=== PATIENT | male | born 1990 | race Caucasian/White ===

== ENCOUNTER 2017-03-05 16:25 | Emergency (ER) | payer OTHER ==
[2017-03-05] MEDS ORDERED: NS 0.9% 1000 ML* 1,000 ML BOLUS SCH (18:00)
--- NOTE | 2017-03-05 18:17 | RAD ---
INDICATION: Shortness of breath. COMPARISON: There are no prior studies available for comparison. TECHNIQUE: Dual-energy PA and lateral views of the chest were obtained. FINDINGS: The heart is within normal limits in size. Mediastinal and hilar contours appear within normal limits. The lungs are clear. No pleural effusion is present. IMPRESSION: NO EVIDENCE FOR ACTIVE CARDIOPULMONARY DISEASE.
[2017-03-05 19:01] LABS: Urine Bilirubin Negative (Negative); Urine Glucose Negative (Negative); Urine Nitrite Negative (Negative)
[2017-03-05 19:38] LABS: Hematocrit 48 % (42-52); Hemoglobin 15.9 g/dl (14.0-18.0); Mean Corpuscular HGB Conc 34 g/dl (31-36); Mean Corpuscular Hemoglobin 31 pg (27-31); Mean Corpuscular Volume 92 fL (80-94); Mean Platelet Volume 10 um3 (7.4-10.4); Red Blood Count 5.16 10^6/ul (4.0-5.4); Red Cell Distribution Width 13 % (10.5-15); White Blood Count 10.4 10^3/ul (3.5-10.8)
[2017-03-05 19:45] LABS: ALT 21 U/L (7-52); AST 19 U/L (13-39); Albumin 4.3 g/dL (3.2-5.2); Alkaline Phosphatase 52 U/L (34-104); Amylase 48 U/L (29-103); Anion Gap 5 mmol/L (2-11); BUN/Creatinine Ratio 17.6 (8-20); Blood Urea Nitrogen 15 mg/dL (6-24); C Reactive Protein < 1.00 mg/L (< 5.00); CO2 Carbon Dioxide 26 mmol/L (22-32); Calcium 9.1 mg/dL (8.6-10.3); Chloride 107 mmol/L (101-111); Creatine Kinase 93 U/L (10-223); EGFR African American 140.1 (>60); Globulin 2.4 g/dL (2-4); Glucose 86 mg/dL (70-100); Lipase 18 U/L (11.0-82.0); Magnesium 1.9 mg/dL (1.9-2.7); Sodium 138 mmol/L (133-145); Total Protein 6.7 g/dL (6.4-8.9)
[2017-03-05 19:53] VITALS: BP 155/90
[2017-03-05] MEDS ORDERED: Iohexol 300* (CONTRAST) 10 ML SDV IV ONE (20:18)
--- NOTE | 2017-03-05 20:48 | RAD ---
INDICATION: Bilateral lower quadrant abdominal pain. COMPARISON: There are no prior studies available for comparison. TECHNIQUE: A CT scan of the abdomen and pelvis was performed with intravenous and oral contrast following intravenous injection of 88 ml of Omnipaque 300 nonionic contrast. Contiguous axial sections were obtained from the lung bases through the symphysis pubis. Images were reconstructed in the coronal and sagittal planes. FINDINGS: The lung bases are clear. No pleural effusion is present. The liver and spleen are within normal limits in size without significant focal abnormality. No calcified gallstones are seen. The pancreas appears to be within normal limits in size. The kidneys and adrenal glands are normal in size. No hydronephrosis is seen. No significant focal renal abnormality is seen. The aorta is normal in caliber and demonstrates homogeneous contrast opacification. No significant enlarged retroperitoneal lymph nodes are seen. There are mildly prominent mesenteric lymph nodes in the right lower quadrant measuring up to 1.5 cm in transverse dimension. The stomach, small and large bowel appear nondistended. The appendix is within normal limits. There is no evidence for diverticulitis or colitis. There is a moderate amount retained stool present. No free intraperitoneal air or fluid is seen. No significant focal osseous abnormality is seen. IMPRESSION: THERE ARE MILDLY PROMINENT LYMPH NODES IN THE RIGHT LOWER QUADRANT SUGGESTING THE POSSIBILITY OF MESENTERIC LYMPHADENITIS.
--- NOTE | 2017-03-06 03:41 | ED ---
Dinesh Durand Thomas, scribed for Mell Richardson MD on 03/05/17 at 1713 . Abdominal Pain/Male - HPI Summary HPI Summary: The pt is a 26 y/o M presenting to the ED c/o abd pain that began between 3 and 7 days ago. The pain is located in bilateral lower quadrants. The pt rates the pain 5/10 in the ED. The pain is described as constant and is described as an ache. His pain sometimes radiates to his back. The pain is not aggravated by palpation. 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 Pt denies dysphagia, choking when eating, bloody stool, painful BMs, fever, chills , diaphoresis, CP, testicular pain, dysuria, and hematuria. He presents to the ED because of his new-onset SOB. He reports that right after I swallow soda, I become short of breath. His cough is similar to his normal smoking-attributed cough. His last BM was today and it was soft, brown, and formed. He does not take any daily medications. PMHx: asthma (as a child), hyperglycemia. PSHx: none. SHx: smoker (1/2 to 1 PPD), no alcohol, no drugs. FHx: appendicitis, DM, CA. The pt reports that he has attempted to quit smoking before to no apparent success. During the examination he was counseled to stop smoking. He reports that he stopped smoking for two years when he was incarcerated for burglary. He used to smoke 2 PPD but he has reduced to 1/2 to 1 PPD. 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 During examination, he consented to a testicular exam. He has never had an STD. He does not want any pain medication at time of examination. - History of Current Complaint Chief Complaint: EDAbdPain Stated Complaint: ABD PAIN/ SOB Time Seen by Provider: 03/05/17 17:04 Hx Obtained From: Patient Onset/Duration: Gradual Onset, Lasting Days - 3-7 days, Still Present Timing: Constant Severity Initially: Moderate Severity Currently: Moderate Pain Intensity: 5 Pain Scale Used: 0-10 Numeric Location: Other - POS: bilateral lower quadrants Radiates: Yes Radiates to: Back Character: Other: - POS: ache Aggravating Factor(s): Nothing, Other: - NOT aggravated by palpation Alleviating Factor(s): Nothing Associated Signs And Symptoms: Positive: Cough - dry, Dizzy - none in the ED, 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 Negative : Diaphoresis, Fever, Chest Pain, Blood in Stool - Risk Factors Testicular Torsion: Negative Cardiac Risk Factors: Smoking - Allergies/Home Medications Allergies/Adverse Reactions: Allergies Allergy/AdvReac Type Severity Reaction Status Date / Time Penicillins Allergy Unknown Verified 03/05/17 16:33 Reaction Details PMH/Surg Hx/FS Hx/Imm Hx Previously Healthy: No Endocrine/Hematology History: Reports: Other Endocrine/Hematological Disorders - Hx hyperglycemia Respiratory History: Reports: Hx Asthma - as a child Infectious Disease History: No Infectious Disease History: Denies: Traveled Outside the [place] in Last 30 Days - Family History Known Family History: Positive: Diabetes, Other - POS: CA, appendicitis - Social History Occupation: Employed Full-time - as a concrete crusher loader operator Alcohol Use: None Alcohol Amount: quit 6 months ago Substance Use Type: Reports: None Hx Tobacco Use: Yes Smoking Status (MU): Light Every Day Tobacco Smoker Review of Systems Constitutional: Negative Negative: Fever, Chills, Skin Diaphoresis Eyes: Negative ENT: Negative, Other - NEG: dysphagia, choking when eating Cardiovascular: Negative Negative: Chest Pain Positive: Shortness Of Breath - s/p drinking soda, Cough - dry Positive: Abdominal Pain - onset 3-7 days, constant, Diarrhea - 3 days ago, undigested food, Other - POS: constipation (no blood, no pain); NEG: bloody stool, painful BMs Genitourinary: Negative Positive: other - NEG: testicular pain. Negative: dysuria, hematuria Musculoskeletal: Negative Skin: Negative Neurological: Other - POS: dizziness (none in the ED, only when operating a forklift) Psychological: Normal All Other Systems Reviewed And Are Negative: Yes Physical Exam Triage Information Reviewed: Yes Vital Signs On Initial Exam: Initial Vitals Pulse Resp BP Pulse Ox 73 17 162/80 98 03/05/17 16:30 03/05/17 16:30 03/05/17 16:30 03/05/17 16:30 afeb in ED Vital Signs Reviewed: Yes Appearance: Positive: Well-Appearing, Well-Nourished, Pain Distress Skin: Positive: Warm, Skin Color Reflects Adequate Perfusion Head/Face: Positive: Normal Head/Face Inspection Eyes: Positive: Conjunctiva Clear ENT: Positive: Normal ENT inspection Neck: Positive: Supple Respiratory/Lung Sounds: Positive: Clear to Auscultation, Breath Sounds Present , Other - No respiratory distress Cardiovascular: Positive: RRR, Pulses are Symmetrical in both Upper and Lower Extremities, Other - Brisk cap refill. Negative: Rub Abdomen Description: Positive: Nontender, No Organomegaly, Soft. Negative: CVA Tenderness (R), CVA Tenderness (L), Distended, Guarding, Hernia @, Hepatomegaly , McBurney's Point Tenderness, Peritoneal Signs, Pulsatile Mass, Splenomegaly Bowel Sounds: Positive: Present Male Genital Exam: Positive: normal genitalia, no hernia, other - Testicles descended. Penis is normal and circumsized. No masses. No hernias.. Negative: epididymal tenderness, erythema, hernia mass, inguinal tenderness, scrotum tenderness (R), scrotum tenderness (L), testicular tenderness (R), testicular tenderness (L), urethral discharge Musculoskeletal: Positive: Strength/ROM Intact Neurological: Positive: Sensory/Motor Intact, Alert, Oriented to Person Place, Time, Speech Normal Psychiatric: Positive: Normal - H[place]ha Coma Scale Coma Scale Total: 15 Diagnostics - Vital Signs Vital Signs Temp Pulse Resp BP Pulse Ox 03/05/17 16:39 98.7 F 73 18 147/84 97 03/05/17 16:30 73 17 162/80 98 - Laboratory Lab Results: Lab Results 03/05/17 03/05/17 03/05/17 Range/Units 18:35 19:20 19:20 WBC 10.4 (3.5-10.8) 10^3/ul RBC 5.16 (4.0-5.4) 10^6/ul Hgb 15.9 (14.0-18.0) g/dl Hct 48 (42-52) % MCV 92 (80-94) fL MCH 31 (27-31) pg MCHC 34 (31-36) g/dl RDW 13 (10.5-15) % Plt Count 118 L (150-450) 10^3/ul MPV 10 (7.4-10.4) um3 Neut % (Auto) 64.1 (38-83) % Lymph % (Auto) 22.2 L (25-47) % [place] % (Auto) 6.2 (1-9) % Eos % (Auto) 5.1 (0-6) % Baso % (Auto) 2.4 H (0-2) % Absolute Neuts (auto) 6.7 (1.5-7.7) 10^3/ul Absolute Lymphs (auto) 2.3 (1.0-4.8) 10^3/ul Absolute Monos (auto) 0.6 (0-0.8) 10^3/ul Absolute Eos (auto) 0.5 (0-0.6) 10^3/ul Absolute Basos (auto) 0.2 (0-0.2) 10^3/ul Absolute Nucleated RBC 0.01 10^3/ul Nucleated RBC % 0.1 D-Dimer, Quantitative (Less Than 230) ng/mL Sodium 138 (133-145) mmol/L Potassium 4.0 (3.5-5.0) mmol/L Chloride 107 (101-111) mmol/L Carbon Dioxide 26 (22-32) mmol/L Anion Gap 5 (2-11) mmol/L BUN 15 (6-24) mg/dL Creatinine 0.85 (0.67-1.17) mg/dL Est GFR ( Amer) 140.1 (>60) Est GFR (Non-Af Amer) 109.0 (>60) BUN/Creatinine Ratio 17.6 (8-20) Glucose 86 (70-100) mg/dL Lactic Acid (0.5-2.0) mmol/L Calcium 9.1 (8.6-10.3) mg/dL Magnesium 1.9 (1.9-2.7) mg/dL Total Bilirubin 0.30 (0.2-1.0) mg/dL AST 19 (13-39) U/L ALT 21 (7-52) U/L Alkaline Phosphatase 52 (34-104) U/L Total Creatine Kinase 93 (10-223) U/L Troponin I 0.00 (<0.04) ng/mL C-Reactive Protein < 1.00 (< 5.00) mg/L Total Protein 6.7 (6.4-8.9) g/dL Albumin 4.3 (3.2-5.2) g/dL Globulin 2.4 (2-4) g/dL Albumin/Globulin Ratio 1.8 (1-3) Amylase 48 (29-103) U/L Lipase 18 (11.0-82.0) U/L Urine Color Yellow Urine Appearance Cloudy Urine pH 7.0 (5-9) Ur Specific [place] 1.021 (1.010-1.030) Urine Protein Negative (Negative) Urine Ketones Negative (Negative) Urine Blood Negative (Negative) Urine Nitrate Negative (Negative) Urine Bilirubin Negative (Negative) Urine Urobilinogen Positive H (Negative) Ur Leukocyte Esterase Negative (Negative) Urine Glucose Negative (Negative) 03/05/17 03/05/17 Range/Units 19:20 19:20 WBC (3.5-10.8) 10^3/ul RBC (4.0-5.4) 10^6/ul Hgb (14.0-18.0) g/dl Hct (42-52) % MCV (80-94) fL MCH (27-31) pg MCHC (31-36) g/dl RDW (10.5-15) % Plt Count (150-450) 10^3/ul MPV (7.4-10.4) um3 Neut % (Auto) (38-83) % Lymph % (Auto) (25-47) % [place] % (Auto) (1-9) % Eos % (Auto) (0-6) % Baso % (Auto) (0-2) % Absolute Neuts (auto) (1.5-7.7) 10^3/ul Absolute Lymphs (auto) (1.0-4.8) 10^3/ul Absolute Monos (auto) (0-0.8) 10^3/ul Absolute Eos (auto) (0-0.6) 10^3/ul Absolute Basos (auto) (0-0.2) 10^3/ul Absolute Nucleated RBC 10^3/ul Nucleated RBC % D-Dimer, Quantitative < 200 (Less Than 230) ng/mL Sodium (133-145) mmol/L Potassium (3.5-5.0) mmol/L Chloride (101-111) mmol/L Carbon Dioxide (22-32) mmol/L Anion Gap (2-11) mmol/L BUN (6-24) mg/dL Creatinine (0.67-1.17) mg/dL Est GFR ( Amer) (>60) Est GFR (Non-Af Amer) (>60) BUN/Creatinine Ratio (8-20) Glucose (70-100) mg/dL Lactic Acid 0.6 (0.5-2.0) mmol/L Calcium (8.6-10.3) mg/dL Magnesium (1.9-2.7) mg/dL Total Bilirubin (0.2-1.0) mg/dL AST (13-39) U/L ALT (7-52) U/L Alkaline Phosphatase (34-104) U/L Total Creatine Kinase (10-223) U/L Troponin I (<0.04) ng/mL C-Reactive Protein (< 5.00) mg/L Total Protein (6.4-8.9) g/dL Albumin (3.2-5.2) g/dL Globulin (2-4) g/dL Albumin/Globulin Ratio (1-3) Amylase (29-103) U/L Lipase (11.0-82.0) U/L Urine Color Urine Appearance Urine pH (5-9) Ur Specific [place] (1.010-1.030) Urine Protein (Negative) Urine Ketones (Negative) Urine Blood (Negative) Urine Nitrate (Negative) Urine Bilirubin (Negative) Urine Urobilinogen (Negative) Ur Leukocyte Esterase (Negative) Urine Glucose (Negative) Result Diagrams: 03/05/17 19:20 03/05/17 19:20 Lab Statement: Any lab studies that have been ordered have been reviewed, and results considered in the medical decision making process. - Radiology CXR Xray Interpretation: No Acute Changes - no active cardiopulmonary disease Radiology Interpretation Completed By: Radiologist - CT CT Abd/Pel CT Interpretation: Positive (See Comments) - THERE ARE MILDLY PROMINENT LYMPH NODES IN THE RIGHT LOWER QUADRANT SUGGESTING THE POSSIBILITY OF MESENTERIC LYMPHADENITIS CT Interpretation Completed By: Radiologist - EKG 19:23 Cardiac Rate: Bradycardia - 57 BPM EKG Rhythm: Sinus Bradycardia - Sinus Bradycardia at 57 BPM, normal AV, normal IV conduction time, normal QTc, normal axis, J-point elevation, early repolarization patter V2 and V3 EKG Comparison: Other - No prior EKGs performed Re-Evaluation - Re-Evaluation First Eval Re-Evaluation Time: 21:15 - pt without pain, wants to go home; CT and lab results discussed Change: Improved Abdominal Pain Fem Course/Dx - Course Assessment/Plan: The pt is a 26 y/o M presenting to the ED c/o abd pain that began between 3 and 7 days ago. The pain is located in bilateral lower quadrants. The pt rates the pain 5/10 in the ED. The pain is described as constant and is described as an ache. His pain sometimes radiates to his back. The pain is not aggravated by palpation. 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 Pt denies dysphagia, choking when eating, bloody stool , painful BMs, fever, chills, diaphoresis, CP, testicular pain, dysuria, and hematuria. He presents to the ED because of his new-onset SOB. He reports that right after I swallow soda, I become short of breath. His cough is similar to his normal smoking-attributed cough. His last BM was today and it was soft, brown, and formed. He does not take any daily medications. PMHx: asthma (as a child), hyperglycemia. PSHx: none. SHx: smoker (1/2 to 1 PPD), no alcohol, no drugs. FHx: appendicitis, DM, CA. The pt reports that he has attempted to quit smoking before to no apparent success. During the examination he was counseled to stop smoking. He reports that he stopped smoking for two years when he was incarcerated for burglary. He used to smoke 2 PPD but he has reduced to 1/2 to 1 PPD. 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 During examination, he consented to a testicular exam. He has never had an STD. He does not want any pain medication at time of examination. An EKG reveals SR, nl AVIVCT, nl axis, J point elevation, no acute changes,no prior to compare. CT Abd/Pel reveals THERE ARE MILDLY PROMINENT LYMPH NODES IN THE RIGHT LOWER QUADRANT SUGGESTING. THE POSSIBILITY OF MESENTERIC LYMPHADENITIS. CXR shows no evidence for active cardiopulmonary disease. Bloodwork reveals Plt count 118, Lymph% 22.2, Baso % 2.4. UA shows positive urobilinogen. Patient is diagnosed with lymphadenitis. The pt is also diagnosed with tobacco abuse disorder and provided educational materials on how to stop smoking. The pt is also diagnosed with elevated blood pressure reading without a diagnosis of hypertension. Patient will be discharged home with follow-up from primary care. Pt is agreeable with this plan. - Diagnoses Differential Diagnosis/HQI/PQRI: Appendicitis, Bowel Obstruction, Constipation, Diverticulitis, Pancreatitis Provider Diagnoses: Tobacco abuse disorder, Elevated blood-pressure reading without diagnosis of hypertension, Acute mesenteric adenitis Discharge - Discharge Plan Condition: Stable Disposition: HOME Patient Education Materials: How to Stop Smoking (ED), Hypertension (ED), Mesenteric Adenitis (ED) Referrals: [facility] [Outside] - 2 Days The documentation as recorded by the Dinesh philippe Thomas accurately reflects the service I personally performed and the decisions made by , Mell Richardson MD.
== END 2017-03-05 21:24 | disposition home or self-care (01) ==
LOC: ED 16:25
DX: R10.9 Unspecified abdominal pain (principal); N50.819 Testicular pain, unspecified; R06.02 Shortness of breath; I88.0 Nonspecific mesenteric lymphadenitis; R42 Dizziness and giddiness; F17.210 Nicotine dependence, cigarettes, uncomplicated; R03.0 Elevated blood-pressure reading, without diagnosis of hypertension
CPT/HCPCS: 36415; 71020; 74177; 80053; 81003; 82150; 82550; 83605; 83690; 83735; 84484; 85025; 85379; 86140; 93005; 99282; Q9967

== ENCOUNTER 2018-06-22 11:39 | Emergency (ER) | payer SELFPAY ==
[2018-06-22 14:04] VITALS: BP 0/0
--- NOTE | 2018-06-22 17:26 | ED ---
Upper Extremity Pain - HPI Summary HPI Summary: Patient is a 27-year-old male who presents emergency department for right shoulder pain times several months. Patient states in November of this year he drove to [place] and since has had right shoulder pain since. He states that pain radiates across into his left shoulder occasionally. He states the morning his shoulders steps and he has to loosen them up. He denies neck pain, numbness, tingling or weakness in arms. Symptoms are mild in severity. Lifting arms makes symptoms worse. Rest makes symptoms better. No past medical history. 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 - History of Current Complaint Chief Complaint: EDExtremityUpper Stated Complaint: ROTATOR CUFF INJURY Time Seen by Provider: 06/22/18 12:55 Hx Obtained From: Patient - Allergies/Home Medications Allergies/Adverse Reactions: Allergies Allergy/AdvReac Type Severity Reaction Status Date / Time Penicillins Allergy Unknown Verified 06/22/18 12:56 Reaction Details PMH/Surg Hx/FS Hx/Imm Hx Previously Healthy: Yes Endocrine/Hematology History: Reports: Other Endocrine/Hematological Disorders - Hx hyperglycemia Respiratory History: Reports: Hx Asthma - as a child Infectious Disease History: No Infectious Disease History: Denies: Traveled Outside the [place] in Last 30 Days - Family History Known Family History: Positive: Diabetes, Other - POS: CA, appendicitis, Non- Contributory - Social History Occupation: Works From/At Home Lives: With Family Alcohol Use: None Alcohol Amount: quit 6 months ago Substance Use Type: Reports: None Hx Tobacco Use: Yes Smoking Status (MU): Heavy Every Day Tobacco Smoker Review of Systems Musculoskeletal: Negative Positive: Other - Bilateral shoulder pain, R>L Negative: Weakness, Paresthesia, Numbness All Other Systems Reviewed And Are Negative: Yes Physical Exam Triage Information Reviewed: Yes Vital Signs On Initial Exam: Initial Vitals Temp Pulse Resp BP Pulse Ox 98.1 F 75 18 132/105 99 06/22/18 11:43 06/22/18 11:43 06/22/18 11:43 06/22/18 11:43 06/22/18 11:43 Vital Signs Reviewed: Yes Appearance: Positive: Well-Appearing - Pt. sitting on bed in NAD. Skin: Positive: Warm, Dry Head/Face: Positive: Normal Head/Face Inspection Eyes: Positive: Normal, EOMI Neck: Positive: Supple, Nontender Musculoskeletal: Positive: Normal, Strength/ROM Intact, Other - Pain with rotation of bilateral shoulders without pinpoint tenderness. Neurological: Positive: Normal, CN Intact II-III Psychiatric: Positive: Affect/Mood Appropriate Diagnostics - Vital Signs Vital Signs Temp Pulse Resp BP Pulse Ox 06/22/18 14:02 0 F 0 17 0/0 0 06/22/18 11:43 98.1 F 75 18 132/105 99 - Laboratory Lab Statement: Any lab studies that have been ordered have been reviewed, and results considered in the medical decision making process. Course/Dx - Course Course Of Treatment: Patient presenting with ongoing shoulder pain. He has a physical job. Pt. drove his motorcycle to the ER today. Xrays are negative for acute findings, reading per radiology. The proximal and prescribed for pain. Advised patient to follow-up with the [facility] and orthopedics further evaluation. Patient understands and agrees with plan. - Diagnoses Differential Diagnosis/HQI/PQRI: Positive: Arthritis, Fracture (Closed), Strain , Sprain Provider Diagnoses: Shoulder strain Discharge - Sign-Out/Discharge Documenting (check all that apply): Patient Departure - Discharge Plan Condition: Good Disposition: HOME Prescriptions: Naproxen [Naproxen 500 mg tab] 500 mg PO Q12H #20 tablet Patient Education Materials: Shoulder Pain (ED) Referrals: [facility] [Outside] Carmen Mancini MD [Medical Doctor] - Additional Instructions: Schedule a follow up appointment with Dr. Mancini and the [facility] Ice intermittently Naproxen as directed for pain Avoid heavy lifting - Billing Disposition and Condition Condition: GOOD Disposition: Home
== END 2018-06-22 14:02 | disposition home or self-care (01) ==
LOC: ED 11:39
DX: S46.911A Strain of unspecified muscle, fascia and tendon at shoulder and upper arm level, right arm, initial encounter (principal); Z72.0 Tobacco use; X58.XXXA Exposure to other specified factors, initial encounter; Y92.9 Unspecified place or not applicable; Z88.0 Allergy status to penicillin
CPT/HCPCS: 99282

== ENCOUNTER 2018-07-10 20:30 | Emergency (ER) | payer SELFPAY ==
[2018-07-10 20:40] VITALS: BP 168/94
--- OUTSIDE RECORDS SUMMARY | 2018-07-10 21:34 | XMS REPORT | Continuity of Care Document ---
:1990 External Reference #:[id number] Author Name Asia Valadez Care Team Providers Name Role Phone Patient's Choice Primary Care Physician Unavailable Payers Description No Information Available Advance Directives Description No Information Available Problems Description No Information Family History Date Family Member(s) Problem(s) Comments General Diabetes Social History Type Date Description Comments Sex Unknown Lives With Spouse Occupation [employer] ETOH Use Occasionally consumes alcohol Tobacco Use Start: Unknown Patient is a current smoker, smokes every day Smoking Status Reviewed: 06/29/18 Patient is a current smoker, smokes every day Exercise Type/Frequency Exercises regularly Allergies, Adverse Reactions, Alerts Date Description Reaction Status Severity Comments 06/29/2018 Penicillin Active Medications Description No Active Medications Immunizations Description No Information Available Vital Signs Date Vital Result Comment 06/29/2018 2:25pm Height 65 inches 5'5" Weight 152.00 lb Heart Rate 80 /min BP Systolic Sitting 150 mmHg BP Diastolic Sitting 90 mmHg Body Temperature 97.1 F BMI (Body Mass Index) 25.3 kg/m2 Results Description No Information Available Procedures Date Code Description Status 06/29/201834350 Inject/Drain Joint/Bursa Major W/O US Completed 06/29/201874307 Inject/Drain Joint/Bursa Major W/O US Completed Encounters Description No Information Available Plan of Treatment Future Appointment(s):09/28/2018 3:30 pm - Jemal V[facility]quez MD at [facility]06/29/2018 - Jemal Vásquez, [id number] Pain in right shoulderReferral:Jori Cole MD, RheumatologyFollow up:Follow up: 3 months with me Also, referral to Dr. [id number] Pain in left [id number] Localized swelling, mass and lump, left lower limbNew Xrays:Ankle Left 3+VWS, Ordered: 06/29/18M75.51 Bursitis of right [id number] Bursitis of left shoulder
== END 2018-07-10 21:30 | disposition left against medical advice (07) ==
LOC: ED 20:30
DX: R10.9 Unspecified abdominal pain (principal); Z53.21 Procedure and treatment not carried out due to patient leaving prior to being seen by health care provider

== ENCOUNTER 2018-07-23 15:17 | Emergency (ER) | payer SELFPAY ==
[2018-07-23 16:58] VITALS: BP 144/80
--- NOTE | 2018-07-23 18:07 | ED ---
Back Pain - HPI Summary HPI Summary: Patient is a 27-year-old male who presents emergency department for left lateral posterior rib pain since yesterday. Patient states he was at work and attempted to start/crack his back when he felt a pop in his left rib cage. Pain is worse with movement and inspiration and palpation. Patient denies recent illness, fevers, coughing, shortness of breath. He denies numbness, tingling or weakness in extremities. He has no past medical history. Denies recent surgery, leg swelling, history of DVTs, recent long travel. Symptoms are mild in severity. Has not taken any [id number] analgesics for pain. - History of Current Complaint Chief Complaint: EDGeneral Stated Complaint: LEFT FLANK PAIN Time Seen by Provider: 07/23/18 15:47 Hx Obtained From: Patient Pain Intensity: 2 - Allergies/Home Medications Allergies/Adverse Reactions: Allergies Allergy/AdvReac Type Severity Reaction Status Date / Time Penicillins Allergy Unknown Verified 07/23/18 15:28 Reaction Details PMH/Surg Hx/FS Hx/Imm Hx Previously Healthy: Yes Endocrine/Hematology History: Reports: Other Endocrine/Hematological Disorders - Hx hyperglycemia Respiratory History: Reports: Hx Asthma - as a child Infectious Disease History: No Infectious Disease History: Denies: Traveled Outside the [place] in Last 30 Days - Family History Known Family History: Positive: Diabetes, Other - POS: CA, appendicitis, Non- Contributory - Social History Alcohol Use: None Alcohol Amount: quit 6 months ago Substance Use Type: Reports: None Hx Tobacco Use: Yes Smoking Status (MU): Heavy Every Day Tobacco Smoker Review of Systems Constitutional: Negative Cardiovascular: Negative Respiratory: Negative Negative: Shortness Of Breath Positive: Other - back and chest wall pain Neurological: Negative Negative: Weakness, Paresthesia, Numbness All Other Systems Reviewed And Are Negative: Yes Physical Exam Triage Information Reviewed: Yes Vital Signs On Initial Exam: Initial Vitals Temp Pulse Resp BP Pulse Ox 99.8 F 99 16 163/85 96 07/23/18 15:23 07/23/18 15:23 07/23/18 15:23 07/23/18 15:23 07/23/18 15:23 Vital Signs Reviewed: Yes Appearance: Positive: Well-Appearing - Pt. sitting up in bed in NAD. Skin: Positive: Warm, Dry Head/Face: Positive: Normal Head/Face Inspection Eyes: Positive: Normal, EOMI Neck: Positive: Supple, Nontender Respiratory/Lung Sounds: Positive: Clear to Auscultation, Breath Sounds Present Cardiovascular: Positive: Normal, RRR Musculoskeletal: Positive: Normal, Strength/ROM Intact, Other - No midline vertebral tenderness. Pain on palpation to the left lateral posterior rib cage. No CVA tenderness Neurological: Positive: Normal, CN Intact II-III Psychiatric: Positive: Affect/Mood Appropriate Diagnostics - Vital Signs Vital Signs Temp Pulse Resp BP Pulse Ox 07/23/18 16:58 98.0 F 80 16 144/80 98 07/23/18 15:23 99.8 F 99 16 163/85 96 - Laboratory Lab Statement: Any lab studies that have been ordered have been reviewed, and results considered in the medical decision making process. Back Pain Course/Dx - Course Course Of Treatment: Patient presenting with posterior rib pain after cracking his back. He has no midline back tenderness. Has no neurological deficits. He is concerned he may have broke a rib. X-rays of chest and ribs were obtained and are unremarkable for acute findings, reading per radiology. Suspect muscle strain. Advised patient to apply ice intermittently. Anti- inflammatory for pain such as ibuprofen. To follow up with [facility] if pain persists. To return to the ER if symptoms change or worsen. Patient understands and agrees with plan. - Diagnoses Differential Diagnosis/HQI/PQRI: Positive: Fracture, Herniated Disc, Strain, Sprain Provider Diagnoses: Muscle strain Discharge - Sign-Out/Discharge Documenting (check all that apply): Patient Departure - Discharge Plan Condition: Good Disposition: HOME Patient Education Materials: Muscle Strain (ED) Referrals: [facility] [Outside] Additional Instructions: Schedule a follow up appointment with the [facility] Ice intermittently NSAIDS for pain as directed such as ibuprofen Return to ER if symptoms change or worsen - Billing Disposition and Condition Condition: GOOD Disposition: Home
== END 2018-07-23 16:58 | disposition home or self-care (01) ==
LOC: ED 15:17
DX: S29.011A Strain of muscle and tendon of front wall of thorax, initial encounter (principal); Z72.0 Tobacco use; Z88.0 Allergy status to penicillin; X50.9XXA Other and unspecified overexertion or strenuous movements or postures, initial encounter; Y92.9 Unspecified place or not applicable; Y99.0 Civilian activity done for income or pay
CPT/HCPCS: 99281

== ENCOUNTER 2018-09-07 11:45 | Emergency (ER) | payer SELFPAY ==
[2018-09-07 11:50] VITALS: BP 158/94
--- NOTE | 2018-09-07 13:15 | ED ---
Upper Extremity Pain - HPI Summary HPI Summary: Patient is a 27 y/o M presenting to ED with complaints of right shoulder pain since this morning. Patient notes that he has been experiencing shoulder pain for the past year. He states that Dr. Cole gave him two cortisone shots three weeks ago, one in each arm, which he notes has greatly relieved Sx. Pain onset again this morning. He had x-ray of shoulder in July, no injuries since then. Patient believes pain is related to arthritis. Patient reports no relief with ibuprofen, Tylenol. He states that he was supposed to see orthopedic doctor but states that appointment was rescheduled and that he has not seen orthopedic doctor yet. He reports no PSHx, no medications, allergy to penicillin , FMHx of CA in grandfather. On triage, pain is rated 10/10. Home medications and allergies are reviewed. Allergies Allergy/AdvReac Type Severity Reaction Status Date / Time Penicillins Allergy Unknown Verified 09/07/18 11:47 Reaction Details - History of Current Complaint Chief Complaint: EDShoulderClavicleInj Stated Complaint: SEVERE SHOULDER PAIN Hx Obtained From: Patient Mechanism Of Injury: Other - no injury reported Onset/Duration: Started Weeks Ago - shoulder pain for past year, Still Present, Worse Since - this morning Timing: Constant, Lasting Hours - since this morning Severity Initially: Moderate Severity Currently: Severe Pain Location: Shoulder - right Character: Sharp Aggravating Factor(s): Movement Alleviating Factor(s): Nothing Associated Signs & Symptoms: Negative: Fever - on vitals, 99 F - Allergies/Home Medications Allergies/Adverse Reactions: Allergies Allergy/AdvReac Type Severity Reaction Status Date / Time Penicillins Allergy Unknown Verified 09/07/18 11:47 Reaction Details PMH/Surg Hx/FS Hx/Imm Hx Previously Healthy: No Endocrine/Hematology History: Reports: Other Endocrine/Hematological Disorders - Hx hyperglycemia Respiratory History: Reports: Hx Asthma - as a child Sensory History: Denies: Hx Legally Blind, Hx Deafness Opthamlomology History: Denies: Hx Legally Blind EENT History: Denies: Hx Deafness - Surgical History Surgery Procedure, Year, and Place: 09/07/18 - reports no PSHx Infectious Disease History: No Infectious Disease History: Denies: Traveled Outside the [place] in Last 30 Days - Family History Known Family History: Positive: Diabetes, Other - POS: CA, appendicitis - Social History Lives: With Family Alcohol Use: None Substance Use Type: Reports: None Hx Tobacco Use: Yes Smoking Status (MU): Heavy Every Day Tobacco Smoker Review of Systems Negative: Fever - on vitals, temp is 99 F Eyes: Negative ENT: Negative Cardiovascular: Negative Respiratory: Negative Gastrointestinal: Negative Positive: no symptoms reported Positive: Other - POSITIVE - RIGHT SHOULDER PAIN Skin: Negative Neurological: Negative Psychological: Normal All Other Systems Reviewed And Are Negative: Yes Physical Exam - Summary Physical Exam Summary: Appearance: Well-appearing, moderate pain distress, well-nourished Skin: Warm, color reflects adequate perfusion, dry Head: Normal Head/Face inspection, atraumatic Eyes: Conjunctiva clear ENT: Normal inspection Neck: Supple, no nodes, no JVD, no bony tenderness, full ROM Respiratory: Lungs clear, normal breath sounds, no respiratory distress Cardio: RRR, No murmur, pulses normal, brisk capillary refill Abdomen: Soft, nontender Musculoskeletal: Decreased abduction and extension of right shoulder, otherwise normal strength/ROM, no calf tenderness, no edema. Distal pulses, sensation intact. Axillary nerve intact on right. Areas of prior cortisone injections, not apparent. Psychological: Normal Neuro: Alert, muscle tone normal, no focal deficit Triage Information Reviewed: Yes Vital Signs On Initial Exam: Initial Vitals Temp Pulse Resp BP Pulse Ox 99 F 79 16 158/94 98 09/07/18 11:47 09/07/18 11:47 09/07/18 11:47 09/07/18 11:47 09/07/18 11:47 Vital Signs Reviewed: Yes Diagnostics - Vital Signs Vital Signs Temp Pulse Resp BP Pulse Ox 09/07/18 11:47 99 F 79 16 158/94 98 - Laboratory Lab Statement: Any lab studies that have been ordered have been reviewed, and results considered in the medical decision making process. Course/Dx - Course Assessment/Plan: Patient is a 27 y/o M presenting to ED with complaints of right shoulder pain since this morning. Patient notes that he has been experiencing shoulder pain for the past year. He states that Dr. Cole gave him two cortisone shots three weeks ago, one in each arm, which he notes has greatly relieved Sx. Pain onset again this morning. He had x-ray of shoulder in July, no injuries since then. Pt declines additional imaging today. Patient believes pain is related to arthritis. Patient reports no relief with ibuprofen , Tylenol. He states that he was supposed to see orthopedic doctor but states that appointment was rescheduled and that he has not seen orthopedic doctor yet. He reports no PSHx, no medications, allergy to penicillin, FMHx of [place] in grandfather. On physical exam, moderate pain distress, decreased extension and abduction of right shoulder, otherwise normal. 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 Therefore, no pain medications given at this time. Patient will be discharged to home with referrals to Dr. Mancini, orthopedist interventional sale consultant, and [facility] to get established with a PCP. Patient is agreeable with this plan. - Diagnoses Differential Diagnosis/HQI/PQRI: Positive: Arthritis, Bursitis, Fracture (Closed ), Strain, Sprain Provider Diagnoses: Right shoulder strain Discharge - Sign-Out/Discharge Documenting (check all that apply): Patient Departure - discharge - Discharge Plan Condition: Stable Disposition: HOME Prescriptions: HYDROcodone/ACETAMIN 5-325 MG* [Spring 5-325 TAB*] 1 tab PO Q8H PRN #9 tab MDD 3 PRN Reason: Pain Patient Education Materials: Shoulder Sprain (ED) Referrals: [facility] [Outside] - 1 Day Carmen Mancini MD [Medical Doctor] - As Soon As Possible (for decreased ROM right shoulder, hx cortisone injections, pain ) No Primary Care Phys,NOPCP [Primary Care Provider] - Additional Instructions: Return to the ER if any new or worsening symptoms. - Billing Disposition and Condition Condition: STABLE Disposition: Home - Attestation Statements Document Initiated by Annelise: Yes Documenting Scribe: NICK MCCLURE Provider For Whom Annelise is Documenting (Include Credential): ALAN TIDWELL MD Scribe Attestation: NICK Durand scribed for ALAN TIDWELL MD on 09/11/18 at 0134. Scribe Documentation Reviewed: Yes Provider Attestation: The documentation as recorded by the NICK philippe accurately reflects the service I personally performed and the decisions made by me, ALAN TIDWELL MD Status of Scribe Document: Viewed
== END 2018-09-07 13:34 | disposition home or self-care (01) ==
LOC: ED 11:45
DX: S43.401A Unspecified sprain of right shoulder joint, initial encounter (principal); Z88.0 Allergy status to penicillin; Z72.0 Tobacco use; X58.XXXA Exposure to other specified factors, initial encounter; Y92.9 Unspecified place or not applicable
CPT/HCPCS: 99281

== ENCOUNTER 2018-09-11 12:07 | Emergency (ER) | payer SELFPAY ==
[2018-09-11 12:16] VITALS: BP 160/99
== END 2018-09-11 15:21 | disposition left against medical advice (07) ==
LOC: ED 12:07
DX: R69 Illness, unspecified (principal); Z53.21 Procedure and treatment not carried out due to patient leaving prior to being seen by health care provider

== ENCOUNTER 2018-12-15 22:32 | Emergency (ER) | payer SELFPAY ==
--- NOTE | 2018-12-15 23:48 | ED ---
Lower Extremity - HPI Summary HPI Summary: 28-year-old male presents with left leg swelling for the past 6 months. He states swelling has been increasing. Denies any pain. He is currently unemployed. He is not on his feet alot. Denies any family history of clots. He has history of IV drug use. No fevers or chills. No rash. is able to ambulate without difficulty. Denies any family history of blood clots. Is a smoker. Denies any recent travel. No injury or previous fracture to the area. no chest pain or SOB. no pain with walking. - History of Current Complaint Chief Complaint: EDExtremityLower Stated Complaint: LT LEG SWOLLEN PER PT Time Seen by Provider: 12/15/18 23:09 Pain Intensity: 0 - Allergies/Home Medications Allergies/Adverse Reactions: Allergies Allergy/AdvReac Type Severity Reaction Status Date / Time Penicillins Allergy Unknown Verified 12/15/18 22:42 Reaction Details Home Medications: Home Medications NK [No Home Medications Reported] 12/15/18 [History Confirmed 12/15/18] PMH/Surg Hx/FS Hx/Imm Hx Endocrine/Hematology History: Reports: Other Endocrine/Hematological Disorders - Hx hyperglycemia Cardiovascular History: Denies: Hx Pacemaker/ICD Respiratory History: Reports: Hx Asthma - as a child History: Denies: Hx Dialysis Sensory History: Denies: Hx Eye Prosthesis, Hx Legally Blind, Hx Deafness Opthamlomology History: Denies: Hx Eye Prosthesis, Hx Legally Blind Neurological History: Denies: Hx Dementia Psychiatric History: Denies: Hx Autism - Surgical History Surgery Procedure, Year, and Place: 09/07/18 - reports no PSHx Infectious Disease History: No Infectious Disease History: Denies: Traveled Outside the [place] in Last 30 Days - Family History Known Family History: Positive: Diabetes, Other - POS: [place], appendicitis, Non- Contributory Negative: Blood Disorder - Social History Alcohol Use: Occasionally Alcohol Amount: quit 6 months ago Substance Use Type: Reports: None Hx Tobacco Use: Yes Smoking Status (MU): Heavy Every Day Tobacco Smoker Review of Systems Negative: Fever Negative: Chest Pain Negative: Shortness Of Breath Positive: Edema - left ankle All Other Systems Reviewed And Are Negative: Yes Physical Exam Triage Information Reviewed: Yes Vital Signs On Initial Exam: Initial Vitals Temp Pulse Resp BP Pulse Ox 98.4 F 73 16 158/105 98 12/15/18 22:37 12/15/18 22:37 12/15/18 22:37 12/15/18 22:37 12/15/18 22:37 Vital Signs Reviewed: Yes Appearance: Positive: Well-Appearing Skin: Positive: Warm, Dry Head/Face: Positive: Normal Head/Face Inspection Eyes: Positive: Normal, Conjunctiva Clear ENT: Positive: Pharynx normal Respiratory/Lung Sounds: Positive: Clear to Auscultation, Breath Sounds Present Cardiovascular: Positive: Normal, RRR Musculoskeletal: Positive: Strength/ROM Intact - left leg, Edema Left - ankle, Other - nontender ankle, good pulses, able to wiggle toes. Negative: Vesta Sign Left Neurological: Positive: Normal Psychiatric: Positive: Normal Diagnostics - Vital Signs Vital Signs Temp Pulse Resp BP Pulse Ox 12/15/18 22:37 98.4 F 73 16 158/105 98 - Laboratory Lab Statement: Any lab studies that have been ordered have been reviewed, and results considered in the medical decision making process. - Ultrasound No standard instances Ultrasound Interpretation Completed By: Radiologist Summary of Ultrasound Findings: IMPRESSION: No left lower extremity deep vein thrombosis. Re-Evaluation - Re-Evaluation First Eval Re-Evaluation Time: 01:01 Comment: discussed results Lower Extremity Course/Dx - Course Course Of Treatment: 28-year-old male presents with left leg swelling for the past 6 months. He states swelling has been increasing. Denies any pain. He is currently unemployed. He is not on his feet alot. Denies any family history of clots. He has history of IV drug use. No fevers or chills. No rash. is able to ambulate without difficulty. Denies any family history of blood clots. Is a smoker. Denies any recent travel. No injury or previous fracture to the area. On exam edema noted to ankle. Nontender left calf. neurovascular intact. Ultrasound normal. Discussed needs to establish care with primary to follow up. patient has already seen by ortho for this who advised PT. Told to get compression socks. Told to elevate. Patient understands and agrees with plan. - Diagnoses Differential Diagnosis/HQI/PQRI: Positive: DVT, Sprain, Strain Provider Diagnoses: Edema of left ankle Discharge - Sign-Out/Discharge Documenting (check all that apply): Patient Departure Patient Received Moderate/Deep Sedation with Procedure: No - Discharge Plan Condition: Good Disposition: HOME Patient Education Materials: Leg Edema (ED) Referrals: [facility] [Outside] Additional Instructions: Use compression socks Ice Elevate Take Tylenol or ibuprofen for pain every 6 hours establish care with primary within 5 days Return to ED if develop any new or worsening symptoms - Billing Disposition and Condition Condition: GOOD Disposition: Home
[2018-12-16 01:06] VITALS: BP 142/76
== END 2018-12-16 01:05 | disposition home or self-care (01) ==
LOC: ED 22:32
DX: R60.0 Localized edema (principal); Z88.0 Allergy status to penicillin; R73.9 Hyperglycemia, unspecified; J45.909 Unspecified asthma, uncomplicated; Z83.3 Family history of diabetes mellitus; F17.200 Nicotine dependence, unspecified, uncomplicated
CPT/HCPCS: 99282

== ENCOUNTER 2019-03-25 18:36 | Emergency (ER) | payer MEDICAID ==
[2019-03-25 18:47] VITALS: BP 164/94
--- NOTE | 2019-03-25 19:20 | ED ---
Lower Extremity - HPI Summary HPI Summary: Patient complains of possible infection to left side mouth with intermittent dental pain 1 month. Denies purulent discharge, fever, oral swelling. Also complains of constant swelling to left ankle times one year with no initial trauma noted. States recent increase in intermittent discomfort of left ankle. Denies new trauma. Denies cough, sore throat, CP, SOB, N/V/D, developing, change in urine, change in BM. Medical history is none. - History of Current Complaint Chief Complaint: EDDentalPain Stated Complaint: TOOTH INFECTION AND ANKLE IS SWOLLEN PER PT Time Seen by Provider: 03/25/19 19:02 Hx Obtained From: Patient Mechanism Of Injury: Unknown Onset/Duration: Weeks Severity Initially: Moderate Severity Currently: Moderate Pain Intensity: 8 Pain Scale Used: 0-10 Numeric Timing: Intermittent Location: Is Discrete @ Character Of Pain: Throbbing Associated Signs And Symptoms: Positive: Swelling Aggravating Factor(s): Ambulation Alleviating Factor(s): Rest, Elevation Able to Bear Weight: Yes - Allergies/Home Medications Allergies/Adverse Reactions: Allergies Allergy/AdvReac Type Severity Reaction Status Date / Time Penicillins Allergy Unknown Verified 03/25/19 18:47 Reaction Details PMH/Surg Hx/FS Hx/Imm Hx Endocrine/Hematology History: Reports: Other Endocrine/Hematological Disorders - Hx hyperglycemia Cardiovascular History: Denies: Hx Pacemaker/ICD Respiratory History: Reports: Hx Asthma - as a child History: Denies: Hx Dialysis Sensory History: Denies: Hx Eye Prosthesis, Hx Legally Blind, Hx Deafness Opthamlomology History: Denies: Hx Eye Prosthesis, Hx Legally Blind EENT History: Denies: Hx Deafness Neurological History: Denies: Hx Dementia Psychiatric History: Denies: Hx Autism - Surgical History Surgery Procedure, Year, and Place: 09/07/18 - reports no PSHx Infectious Disease History: No Infectious Disease History: Denies: Traveled Outside the [place] in Last 30 Days - Family History Known Family History: Positive: Diabetes, Other - POS: CA, appendicitis, Non- Contributory Negative: Blood Disorder - Social History Alcohol Use: None Alcohol Amount: Sober for 3 months Substance Use Type: Reports: None Hx Tobacco Use: Yes Smoking Status (MU): Heavy Every Day Tobacco Smoker Review of Systems Constitutional: Negative Eyes: Negative Positive: Dental Pain Cardiovascular: Negative Respiratory: Negative Gastrointestinal: Negative Genitourinary: Negative Musculoskeletal: Other Skin: Negative Neurological: Negative Psychological: Normal All Other Systems Reviewed And Are Negative: Yes Physical Exam - Summary Physical Exam Summary: No purulent discharge, apical abscess, swelling noted intraorally. Positive dental caries on left lower and left upper posterior molars. Swelling of left ankle without ecchymosis, erythema, deformity noted. Full range of motion of left ankle. PMS intact distally. No pain with palpation of left ankle or foot. Calf soft nontender. Triage Information Reviewed: Yes Vital Signs On Initial Exam: Initial Vitals Temp Pulse Resp BP Pulse Ox 99.0 F 71 16 164/94 98 03/25/19 18:45 03/25/19 18:45 03/25/19 18:45 03/25/19 18:45 03/25/19 18:45 Vital Signs Reviewed: Yes Appearance: Positive: Well-Appearing Skin: Positive: Warm Head/Face: Positive: Normal Head/Face Inspection Eyes: Positive: Normal ENT: Positive: Normal ENT inspection Dental: Positive: Gross Decay/Caries @. Negative: Dental Fracture @, Bleeding Neck: Positive: Supple Respiratory/Lung Sounds: Positive: Clear to Auscultation Cardiovascular: Positive: Normal Abdomen Description: Positive: Nontender Musculoskeletal: Positive: Normal Neurological: Positive: Normal Psychiatric: Positive: Normal AVPU Assessment: Alert - Harsha Coma Scale Best Eye Response: 4 - Spontaneous Best Motor Response: 6 - Obeys Commands Best Verbal Response: 5 - Oriented Coma Scale Total: 15 Diagnostics - Vital Signs Vital Signs Temp Pulse Resp BP Pulse Ox 03/25/19 18:45 99.0 F 71 16 164/94 98 - Laboratory Lab Statement: Any lab studies that have been ordered have been reviewed, and results considered in the medical decision making process. Lower Extremity Course/Dx - Course Course Of Treatment: Patient complains of possible infection to left side mouth with intermittent dental pain 1 month. Denies purulent discharge, fever, oral swelling. Also complains of constant swelling to left ankle times one year with no initial trauma noted. States recent increase in intermittent discomfort of left ankle. Denies new trauma. Denies cough, sore throat, CP, SOB, N/V/D, developing, change in urine, change in BM. Medical history is none. Vital signs within normal limits. Advised patient follow-up with dentist for dental caries. Rx for Augmentin. Patient states he can take amoxicillin despite of allergy to penicillin. Advised patient follow-up with orthopedics for further evaluation of left ankle. - Diagnoses Provider Diagnoses: Pain, dental, Dental caries, Edema of left ankle Discharge - Sign-Out/Discharge Documenting (check all that apply): Patient Departure Patient Received Moderate/Deep Sedation with Procedure: No - Discharge Plan Condition: Stable Disposition: HOME Prescriptions: Amoxicillin/Clavulanate TAB* [Augmentin TAB 875*] 875 mg PO BID #20 tab Ibuprofen TAB* [Motrin TAB* 600 MG] 600 mg PO Q8H PRN 7 Days #20 tab PRN Reason: Pain - Moderate Patient Education Materials: Toothache (ED), Edema (ED) Referrals: No Primary Care Phys,NOPCP [Primary Care Provider] - Mac Bose MD [Medical Doctor] - Additional Instructions: Follow-up with your dentist as soon as possible for tooth decay of all 4 wisdom teeth. Follow-up with orthopedics Dr Bose for further evaluation of left ankle swelling. - Billing Disposition and Condition Condition: STABLE Disposition: Home
== END 2019-03-25 19:29 | disposition home or self-care (01) ==
LOC: ED 18:36
DX: K08.89 Other specified disorders of teeth and supporting structures (principal); K02.9 Dental caries, unspecified; R60.0 Localized edema; Z88.0 Allergy status to penicillin; F17.200 Nicotine dependence, unspecified, uncomplicated
CPT/HCPCS: 99282

== ENCOUNTER 2019-04-15 16:17 | Emergency (ER) | payer MEDICAID, OTHER ==
[2019-04-15 16:23] VITALS: BP 171/86
--- NOTE | 2019-04-15 18:39 | ED ---
Skin Complaint - HPI Summary HPI Summary: Patient complains of rash to bilateral inner arms, chest and abdomen after exposure to poison cristine 3 days ago. Patient states first exposure. Patient has been trying calamine lotion, Benadryl ointment with no relief. Denies any other pain, injury or symptoms. - History of Current Complaint Chief Complaint: EDExtremityLower Time Seen by Provider: 04/15/19 17:47 Stated Complaint: RASH ON LEGS AND ARM PER PT Hx Obtained From: Patient Onset/Duration: Started Days Ago Skin Exposure Onset/Duration: Days Ago Timing: Constant Onset Severity: Moderate Current Severity: Moderate Pain Intensity: 8 Pain Scale Used: 0-10 Numeric Skin Location: Chest, Arm, Abdomen Aggravating Symptom(s): Nothing Alleviating Symptom(s): Nothing Associated Signs & Symptoms: Rash - Allergy/Home Medications Allergies/Adverse Reactions: Allergies Allergy/AdvReac Type Severity Reaction Status Date / Time Penicillins Allergy Unknown Verified 03/25/19 18:47 Reaction Details Home Medications: Home Medications NK [No Home Medications Reported] 04/15/19 [History Confirmed 04/15/19] PMH/Surg Hx/FS Hx/Imm Hx Endocrine/Hematology History: Reports: Other Endocrine/Hematological Disorders - Hx hyperglycemia Cardiovascular History: Denies: Hx Pacemaker/ICD Respiratory History: Reports: Hx Asthma - as a child History: Denies: Hx Dialysis Sensory History: Denies: Hx Eye Prosthesis, Hx Legally Blind, Hx Deafness Opthamlomology History: Denies: Hx Eye Prosthesis, Hx Legally Blind Neurological History: Denies: Hx Dementia Psychiatric History: Denies: Hx Autism - Surgical History Surgery Procedure, Year, and Place: 09/07/18 - reports no PSHx Infectious Disease History: No Infectious Disease History: Denies: Traveled Outside the [place] in Last 30 Days - Family History Known Family History: Positive: Diabetes, Other - POS: CA, appendicitis, Non- Contributory Negative: Blood Disorder - Social History Alcohol Use: None Alcohol Amount: Sober for 3 months Substance Use Type: Reports: None Hx Tobacco Use: Yes Smoking Status (MU): Heavy Every Day Tobacco Smoker Review of Systems Constitutional: Negative Eyes: Negative ENT: Negative Cardiovascular: Negative Respiratory: Negative Gastrointestinal: Negative Genitourinary: Negative Musculoskeletal: Negative Positive: Rash Neurological: Negative Psychological: Normal All Other Systems Reviewed And Are Negative: Yes Physical Exam - Summary Physical Exam Summary: Areas of raised erythematous vesicular rash on bilateral inner arms, bilateral chest, bilateral abdomen. No other rash noted. No facial or oral involvement. Triage Information Reviewed: Yes Vital Signs On Initial Exam: Initial Vitals Temp Pulse Resp BP Pulse Ox 98.1 F 75 16 171/86 96 04/15/19 16:21 04/15/19 16:21 04/15/19 16:21 04/15/19 16:21 04/15/19 16:21 Vital Signs Reviewed: Yes Appearance: Positive: Well-Appearing Skin: Positive: Warm Head/Face: Positive: Normal Head/Face Inspection Eyes: Positive: Normal ENT: Positive: Normal ENT inspection Neck: Positive: Supple Respiratory/Lung Sounds: Positive: Clear to Auscultation Cardiovascular: Positive: Normal Abdomen Description: Positive: Nontender Musculoskeletal: Positive: Normal Neurological: Positive: Normal Psychiatric: Positive: Normal AVPU Assessment: Alert - [place] Coma Scale Best Eye Response: 4 - Spontaneous Best Motor Response: 6 - Obeys Commands Best Verbal Response: 5 - Oriented Coma Scale Total: 15 Diagnostics - Vital Signs Vital Signs Temp Pulse Resp BP Pulse Ox 04/15/19 16:21 98.1 F 75 16 171/86 96 - Laboratory Lab Statement: Any lab studies that have been ordered have been reviewed, and results considered in the medical decision making process. Course/Dx - Course Course Of Treatment: Patient complains of rash to bilateral inner arms, chest and abdomen after exposure to poison cristine 3 days ago. Patient states first exposure. Patient has been trying calamine lotion, Benadryl ointment with no relief. Denies any other pain, injury or symptoms. Vital signs within normal limits. - Diagnoses Provider Diagnoses: Contact dermatitis Discharge ED - Sign-Out/Discharge Documenting (check all that apply): Patient Departure Patient Received Moderate/Deep Sedation with Procedure: No - Discharge Plan Condition: Stable Disposition: HOME Patient Education Materials: Poison Cristine (ED) Referrals: No Primary Care Phys,NOPCP [Primary Care Provider] - Additional Instructions: Put ointment on twice a day until rashes heal. You may also use Technu Poison Cristine Cleanser Soap on rash. This is available [id number] [employer]. Wash rash regularly with warm water and soap. Cold compresses will also help. Return to the ED for any worsening symptoms. - Billing Disposition and Condition Condition: STABLE Disposition: Home
[2019-04-15] MEDS ORDERED: Bacitracin OINTMENT* 0.5% 0.5 oz TUBE ONE (18:43)
[2019-04-15] MEDS ORDERED: Clobetasol 0.05% OINT* 30 GM TUBE TOPICAL SCH (21:00)
== END 2019-04-15 19:08 | disposition home or self-care (01) ==
LOC: ED 16:17
DX: L23.7 Allergic contact dermatitis due to plants, except food (principal); Z88.0 Allergy status to penicillin; F17.200 Nicotine dependence, unspecified, uncomplicated
CPT/HCPCS: 99281; A9270-GY

== ENCOUNTER 2019-04-17 16:34 | Emergency (ER) | payer OTHER ==
[2019-04-17 16:40] VITALS: BP 155/98
[2019-04-17] MEDS ORDERED: predniSONE TAB* 20 MG PO ONE (18:57)
--- NOTE | 2019-04-17 18:57 | ED ---
Skin Complaint - HPI Summary HPI Summary: 28-year-old male presents with rash for the past 5 days. He states he was exposed recently. He was seen here and was tried on topical hydrocortisone which has not helped. He states the rash continues to spread. He states is very itchy. Has been taking Benadryl for itchiness. denies any fever. No chest pain shortness breath. never had this rash before. No new soaps. Denies any recent tick exposure. - History of Current Complaint Chief Complaint: EDRashSkinAbscess Time Seen by Provider: 04/17/19 18:24 Stated Complaint: POISON SHAE PER PT Pain Intensity: 8 - Allergy/Home Medications Allergies/Adverse Reactions: Allergies Allergy/AdvReac Type Severity Reaction Status Date / Time Penicillins Allergy Unknown Verified 03/25/19 18:47 Reaction Details Home Medications: Home Medications buPROPion SR TAB* [Wellbutrin SR TAB*] 100 mg PO QAM 04/17/19 [History Confirmed 04/17/19] PMH/Surg Hx/FS Hx/Imm Hx Endocrine/Hematology History: Reports: Other Endocrine/Hematological Disorders - Hx hyperglycemia Cardiovascular History: Denies: Hx Pacemaker/ICD Respiratory History: Reports: Hx Asthma - as a child History: Denies: Hx Dialysis Sensory History: Denies: Hx Eye Prosthesis, Hx Legally Blind, Hx Deafness Opthamlomology History: Denies: Hx Eye Prosthesis, Hx Legally Blind Neurological History: Denies: Hx Dementia Psychiatric History: Denies: Hx Autism - Surgical History Surgery Procedure, Year, and Place: 09/07/18 - reports no PSHx Infectious Disease History: No Infectious Disease History: Denies: Traveled Outside the [place] in Last 30 Days - Family History Known Family History: Positive: Diabetes, Other - POS: CA, appendicitis, Non- Contributory Negative: Blood Disorder - Social History Alcohol Use: None Alcohol Amount: Sober for 3 months Substance Use Type: Reports: None Hx Tobacco Use: Yes Smoking Status (MU): Heavy Every Day Tobacco Smoker Review of Systems Negative: Fever Negative: Chest Pain Negative: Shortness Of Breath Positive: Rash All Other Systems Reviewed And Are Negative: Yes Physical Exam Triage Information Reviewed: Yes Vital Signs On Initial Exam: Initial Vitals Temp Pulse Resp BP Pulse Ox 97.7 F 83 18 155/98 97 04/17/19 16:36 04/17/19 16:36 04/17/19 16:36 04/17/19 16:36 04/17/19 16:36 Vital Signs Reviewed: Yes Appearance: Positive: Well-Appearing Skin: Positive: Warm, Dry, Other - urticaria rash across trunk that follows linear distribution Head/Face: Positive: Normal Head/Face Inspection Eyes: Positive: Normal, EOMI, RAY, Conjunctiva Clear ENT: Positive: Normal ENT inspection, Pharynx normal, TMs normal Respiratory/Lung Sounds: Positive: Clear to Auscultation, Breath Sounds Present Cardiovascular: Positive: Normal, RRR Abdomen Description: Positive: Nontender, Soft Bowel Sounds: Positive: Present Musculoskeletal: Positive: Normal Neurological: Positive: Normal Psychiatric: Positive: Normal Diagnostics - Vital Signs Vital Signs Temp Pulse Resp BP Pulse Ox 04/17/19 16:36 97.7 F 83 18 155/98 97 - Laboratory Lab Statement: Any lab studies that have been ordered have been reviewed, and results considered in the medical decision making process. Course/Dx - Course Course Of Treatment: 28-year-old male presents with rash for the past 5 days. He states he was exposed recently. He was seen here and was tried on topical hydrocortisone which has not helped. He states the rash continues to spread. He states is very itchy. Has been taking Benadryl for itchiness. denies any fever. No chest pain shortness breath. never had this rash before. No new soaps. Denies any recent tick exposure. On exam has urticaria rash in linear distribution. Appears with poison shae. We'll place on the patient on course of steroids. Told est care with primary. Patient understands agrees with plan. - Differential Diagnoses - Skin Complaint Differential Diagnoses: Poison Shae, Poison [place], Urticaria - Diagnoses Provider Diagnoses: Rash Discharge ED - Sign-Out/Discharge Documenting (check all that apply): Patient Departure Patient Received Moderate/Deep Sedation with Procedure: No - Discharge Plan Condition: Good Disposition: HOME Prescriptions: predniSONE TAB* [Deltasone 10 MG TAB*] 40 mg PO DAILY #22 tab Patient Education Materials: Urticaria (ED) Referrals: [facility] [Outside] Additional Instructions: Take steroids 40mg (4 tablets) for 4 days, then 20 mg(2 tablets) for 2 days, then 1 tablet for 2 days Take Benadryl every 6 hours for itching Follow up with primary Return to ED if develop any new or worsening symptoms - Billing Disposition and Condition Condition: GOOD Disposition: Home - Attestation Statements Provider Attestation: I was available for consult. This patient was seen by the SHERRI. The patient was not presented to, seen by, or examined by me. Pankaj Mancera MD
== END 2019-04-17 19:38 | disposition home or self-care (01) ==
LOC: ED 16:34
DX: L50.6 Contact urticaria (principal); Z88.0 Allergy status to penicillin
CPT/HCPCS: 99282; J7512

== ENCOUNTER 2019-06-07 11:55 | Emergency (ER) | payer OTHER ==
--- NOTE | 2019-06-07 12:08 | ED ---
Skin Complaint - HPI Summary HPI Summary: This pt is a 28 y/o male presenting to [facility] c/o pain, swelling, and redness on left side of nose for the past 1-2 days. Pt reports he believes "something" bit him and now has pain on the inside and outside of his nose. Additionally reports left ear pain and left wisdom tooth pain. Denies fever, chills, nausea, vomiting. He took liquid Tylenol today with no relief. Pt has hx of bed bugs in the past but reports he no longer has them. Allergic to penicillin. He reports most of his family is also allergic to penicillin. Denies drug or alcohol use but does admit to smoking 1/2 to 1 pack per day. Medications reviewed. Allergies noted. - History of Current Complaint Chief Complaint: EDRashSkinAbscess Time Seen by Provider: 06/07/19 12:01 Stated Complaint: POSS BUG BITE IN NOSE PER PT Hx Obtained From: Patient Onset/Duration: Started Days Ago, Still Present Skin Exposure Onset/Duration: Days Ago - 1-2 Timing: Lasting Days Current Severity: Severe - left nare Pain Intensity: 9 Pain Scale Used: 0-10 Numeric Skin Location: Nose - left sided Character: Swelling, Pain, Redness Aggravating Symptom(s): Nothing Alleviating Symptom(s): Nothing Associated Signs & Symptoms: Negative - Allergy/Home Medications Allergies/Adverse Reactions: Allergies Allergy/AdvReac Type Severity Reaction Status Date / Time Penicillins AdvReac Unknown Verified 06/07/19 11:57 Reaction Details PMH/Surg Hx/FS Hx/Imm Hx Endocrine/Hematology History: Reports: Other Endocrine/Hematological Disorders - Hx hyperglycemia Cardiovascular History: Denies: Hx Pacemaker/ICD Respiratory History: Reports: Hx Asthma - as a child History: Denies: Hx Dialysis Sensory History: Denies: Hx Eye Prosthesis, Hx Legally Blind, Hx Deafness Opthamlomology History: Denies: Hx Eye Prosthesis, Hx Legally Blind Neurological History: Denies: Hx Dementia Psychiatric History: Denies: Hx Autism - Surgical History Surgical History: None Surgery Procedure, Year, and Place: 09/07/18 - reports no PSHx Infectious Disease History: No Infectious Disease History: Denies: Traveled Outside the [place] in Last 30 Days - Family History Known Family History: Positive: Diabetes, Other - POS: CA, appendicitis Negative: Blood Disorder - Social History Alcohol Use: None Alcohol Amount: Sober for 3 months Substance Use Type: Reports: None Hx Tobacco Use: Yes Smoking Status (MU): Heavy Every Day Tobacco Smoker Review of Systems Negative: Fever, Chills ENT: Other - left side of nose with pain, swelling, redness. Positive: Ear Ache - left Negative: Vomiting, Nausea All Other Systems Reviewed And Are Negative: Yes Physical Exam - Summary Physical Exam Summary: Constitutional: Well-developed, Well-nourished, Alert. (-) Distressed Skin: Warm, Dry HENT: Normocephalic; Atraumatic. Erythema to the left external nostril. No fluctuance or induration. Eyes: Conjunctiva normal Neck: Musculoskeletal ROM normal neck. (-) JVD, (-) Stridor, (-) Tracheal deviation Cardio: Rhythm regular, rate normal, Heart sounds normal; Intact distal pulses; The pedal pulses are 2+ and symmetric. Radial pulses are 2+ and symmetric. (-) Murmur Pulmonary/Chest wall: Effort normal. (-) Respiratory distress, (-) Wheezes, (-) Rales Abd: Soft, (-) tenderness, (-) Distension, (-) Guarding, (-) Rebound Musculoskeletal: (-) Edema Lymph: (-) Cervical adenopathy Neuro: Alert, Oriented x3 Psych: Mood and affect Normal Triage Information Reviewed: Yes Vital Signs On Initial Exam: Initial Vitals Temp Pulse Resp BP Pulse Ox 98.2 F 69 18 170/89 98 06/07/19 11:58 06/07/19 11:58 06/07/19 11:58 06/07/19 11:58 06/07/19 11:58 Vital Signs Reviewed: Yes Procedures - Sedation Patient Received Moderate/Deep Sedation with Procedure: No Diagnostics - Vital Signs Vital Signs Temp Pulse Resp BP Pulse Ox 06/07/19 11:58 98.2 F 69 18 170/89 98 - Laboratory Lab Statement: Any lab studies that have been ordered have been reviewed, and results considered in the medical decision making process. Course/Dx - Course Course Of Treatment: Patient is here cellulitis of his nose. Patient has no drainable abscess and his overall well appearing. Patient has no evidence of preseptal cellulitis. Patient was started on antibiotics. - Diagnoses Provider Diagnoses: Nose cellulitis Discharge ED - Sign-Out/Discharge Documenting (check all that apply): Patient Departure - Discharge home - Discharge Plan Condition: Stable Disposition: HOME Prescriptions: Cephalexin CAP* [Keflex CAP*] 500 mg PO TID 7 Days #21 cap DOXYcycline CAP(*) [DOXYcycline 100MG CAP(*)] 100 mg PO BID 7 Days #14 cap Patient Education Materials: Cellulitis (ED) Referrals: [facility] [address] [Outside] [facility] [place] [facility] [Outside] Additional Instructions: Take antibiotics as prescribed. PLEASE RETURN TO EMERGENCY DEPARTMENT FOR ANY NEW OR WORSENING SYMPTOMS, SUCH WORSENING REDNESS, ANY FEVERS, ANY PUS COMING OUT OF WOUND, OR ANY OTHER CONCERNING SYMPTOMS. Please follow up with [facility]. Please make all follow-ups in 1-3 days unless I advise you otherwise. You have also been given a referral to establish a primary care provider through [facility] Physician Referral. - Billing Disposition and Condition Condition: STABLE Disposition: Home - Attestation Statements Document Initiated by Annelise: Yes Documenting Scribe: Eden Quinones Provider For Whom Annelise is Documenting (Include Credential): Pankaj Mancera MD Scribe Attestation: Eden Durand, scribed for Pankaj Mancera MD on 06/14/19 at 2142. Scribe Documentation Reviewed: Yes Provider Attestation: The documentation as recorded by the Eden philippe accurately reflects the service I personally performed and the decisions made by , Pankaj Mancera MD Status of Scribe Document: Viewed
[2019-06-07] MEDS ORDERED: DOXYcycline CAP(*) 100 MG PO ONE (12:19)
[2019-06-07] MEDS ORDERED: Ibuprofen TAB* 600 MG PO ONE (12:19)
[2019-06-07] MEDS ORDERED: Cephalexin CAP* 500 MG PO ONE (12:19)
[2019-06-07 12:48] VITALS: BP 163/95
== END 2019-06-07 12:45 | disposition home or self-care (01) ==
LOC: ED 11:55
DX: J34.0 Abscess, furuncle and carbuncle of nose (principal); H92.02 Otalgia, left ear; K08.89 Other specified disorders of teeth and supporting structures; Z88.0 Allergy status to penicillin; F17.200 Nicotine dependence, unspecified, uncomplicated
CPT/HCPCS: 99282; A9270-GY